=== PATIENT | female | born 1960 | race Caucasian/White ===

== ENCOUNTER 2018-01-31 11:52 | Emergency (ER) | payer MEDICARE ==
[~2018-01-31] VITALS: Ht 185.4 cm; Wt 98.0 kg
[~2018-01-31 11:52] MED LIST: ALBU8.5H8 INH; AZIT250T89 PO; CEFD300C37 PO; FLUT1AER INH; GABA300C10 PO; LISI1TAB3 PO; METH4TAB2 PO
[2018-01-31] MEDS ORDERED: ALBUTEROL/IPRATROPIUM 2.5MG/0.5MG, 3 ML NPPB ONE (12:30)
[2018-01-31] MEDS ORDERED: MELO7.5T31 PO (12:34)
[2018-01-31] MEDS ORDERED: LISI-167 PO (12:34)
[2018-01-31] MEDS ORDERED: HYDR12.53 PO (12:34)
[2018-01-31 12:41] LABS: BASOPHILS # (AUTO) 0.04 x10^3/uL (0-0.1); BASOPHILS % (AUTO) 1 % (0-1); EOSINOPHILS # (AUTO) 0.11 x10^3/uL (0-0.4); EOSINOPHILS % (AUTO) 2 % (1-7); LYMPHOCYTES % (AUTO) 45 % (22-44); MD NO; MEAN CORPUSCULAR HEMOGLOBIN 29.6 pg (27.0-34.8); MEAN CORPUSCULAR HGB CONC 34.3 g/dL (32.4-35.8); MEAN CORPUSCULAR VOLUME 86.3 fL (80-100); MEAN PLATELET VOLUME 8.7 fL (7.4-10.4); MONOCYTES # (AUTO) 0.44 x10^3/uL (0.2-0.8); MONOCYTES % (AUTO) 7 % (2-9); NEUTROPHILS % (AUTO) 45 % (42-75); PLATELET COUNT 217 x10^3/uL (130-400); RED BLOOD COUNT 4.79 x10^6/uL (3.82-5.3); RED CELL DISTRIBUTION WIDTH 13.6 % (9.6-15.2)
[2018-01-31 12:54] LABS: ALBUMIN 3.8 g/dL (3.4-5.0); ANION GAP 6 mmol/L (5-15); CALCIUM 9.1 mg/dL (8.5-10.1); CHLORIDE 107 mmol/L (98-107); CREATININE 0.82 mg/dL (0.55-1.02)
[2018-01-31] MEDS ORDERED: ALBUTEROL/IPRATROPIUM 2.5MG/0.5MG, 3 ML ONE (13:09)
[2018-01-31 14:01] VITALS: BP 146/74
== END 2018-01-31 14:02 | disposition home or self-care (01) ==
LOC: ED 13:25
DX: J45.909 Unspecified asthma, uncomplicated (principal); I10 Essential (primary) hypertension; F17.200 Nicotine dependence, unspecified, uncomplicated
CPT/HCPCS: 36415; 71046; 80048; 82040; 85025; 93005; 94640; 99285; J7620

== ENCOUNTER 2018-08-24 23:46 | Emergency (ER) | payer MEDICARE ==
[~2018-08-24] VITALS: Ht 185.4 cm; Wt 88.3 kg
[~2018-08-24 23:46] MED LIST changes: +HYDR12.517 PO; +LISI-167 PO; +MELO7.5T31 PO
--- NOTE | 2018-08-24 23:57 | NUR ---
WAS SEEN AT [facility] LAST NIGHT. LEFT BREAST PAIN AFTER LEANING ON COUNTER YESTERDAY. NIPPLE INVERTED YESTERDAY. HAD CXR AND BLOODWORK AND WAS TOLD "ALL GOOD". PT STATES [facility] TOLD HER THEY WERE UNABLE TO A SONOGRAM OF HER BREAST.
--- NOTE | 2018-08-25 01:00 | NUR ---
ERP at bedside for re-evaluation.
--- NOTE | 2018-08-25 01:09 | NUR ---
patient discharged with instruction. verbalized understanding.
[2018-08-25 01:10] VITALS: BP 113/78
== END 2018-08-25 01:12 | disposition home or self-care (01) ==
LOC: ED 08-25 00:34
DX: N64.4 Mastodynia (principal); R05 Cough; R09.81 Nasal congestion; I10 Essential (primary) hypertension
CPT/HCPCS: 76642; 99284

== ENCOUNTER 2018-09-25 08:40 | Outpatient (CLI) | payer MEDICARE ==
[2018-09-25] MEDS ORDERED: SODIUM BICARBONATE 4.2%, 5ML ONE (09:00)
[2018-09-25] MEDS ORDERED: LIDOCAINE 1%-EPI 1:100K, 20ML ONE (09:00)
[2018-09-25] MEDS ORDERED: LIDOCAINE 1%, 20ML ONE (09:00)
== END 2018-09-25 23:59 | disposition home or self-care (01) ==
LOC: CFH 08:40
PROVIDERS: ATTEND Surgery
DX: N61.0 Mastitis without abscess (principal)
CPT/HCPCS: 19083; 77065; 88305; 88312; J3490; 19285

== ENCOUNTER 2018-10-06 08:06 | Day surgery (SDC) | payer MEDICARE ==
[~2018-10-06] VITALS: Ht 185.4 cm; Wt 89.9 kg
[~2018-10-06 08:06] MED LIST changes: +BUPIVACAINE/PF 0.5% ONE; +EPINEPHRINE 1 MG/ML, 1ML ONE
[2018-10-06] MEDS ORDERED: LACTATED RINGERS 1,000 ML IV SCH (09:19)
[2018-10-06 09:21] VITALS: BP 129/85
[2018-10-06 09:23] VITALS: BP 129/85
[2018-10-06] MEDS ORDERED: CYCL-259 PO (09:48)
[2018-10-06] MEDS ORDERED: HYDR-3237 PO (09:49)
[2018-10-06 10:07] LABS: ALANINE AMINOTRANSFERASE 17 U/L (12-78); ALBUMIN 3.6 g/dL (3.4-5.0); ANION GAP 7 mmol/L (5-15); CHLORIDE 106 mmol/L (98-107); CREATININE 0.73 mg/dL (0.55-1.02)
[2018-10-06 10:09] LABS: ALKALINE PHOSPHATASE 104 U/L (45-117); BILIRUBIN,TOTAL 0.4 mg/dL (0.2-1.0); TOTAL PROTEIN 6.6 g/dL (6.4-8.2)
[2018-10-06] MEDS ORDERED: MIDAZOLAM 1 MG/ML, 2ML ONE (10:21)
[2018-10-06] MEDS ORDERED: FENTANYL PF 100 MCG/2ML ONE ×2 (10:21→11:06)
[2018-10-06] MEDS ORDERED: LABETALOL 5MG/ML, 20ML IV PRN (11:00)
[2018-10-06] MEDS ORDERED: ACETAMINOPHEN 325 MG TABLET PO PRN (11:00)
[2018-10-06] MEDS ORDERED: ALBUTEROL SULFATE 2.5 MG/3 ML NPPB PRN (11:00)
[2018-10-06] MEDS ORDERED: PROMETHAZINE 25 MG/ML, 1ML IV PRN (11:00)
[2018-10-06] MEDS ORDERED: MEPERIDINE/PF 25MG/0.5ML IVPush PRN (11:00)
[2018-10-06] MEDS ORDERED: DIAZEPAM 5 MG/ML, 2ML IVPush PRN (11:00)
[2018-10-06] MEDS ORDERED: OXYcodone 5 MG/5 ML ORAL.SOL UDC PO PRN (11:00)
[2018-10-06] MEDS ORDERED: hydrALAzine 20 MG/ML, 1ML IV PRN (11:00)
[2018-10-06] MEDS ORDERED: KETOROLAC 30 MG/1 ML IV PRN (11:00)
[2018-10-06] MEDS ORDERED: DEXAMETHASONE 4 MG/ML, 1ML ONE (11:04)
[2018-10-06] MEDS ORDERED: ONDANSETRON 2MG/ML, 2ML ONE (11:04)
[2018-10-06] MEDS ORDERED: PROPOFOL 10 MG/ML, 20ML ONE (11:04)
[2018-10-06] MEDS ORDERED: CEFAZOLIN 1,000 MG ONE (11:04)
[2018-10-06] MEDS: FENTANYL PF 100 MCG/2ML IV PRN ×2 (11:10→11:30)
[2018-10-06] MEDS ORDERED: HYDROmorphone 2 MG/ML, 1ML ONE (11:18)
[2018-10-06] MEDS ORDERED: OXYcodone 5 MG/5 ML ORAL.SOL UDC ONE (11:18)
[2018-10-06] MEDS: HYDROmorphone 2 MG/ML, 1ML IVPush PRN ×2 (11:29→11:40)
== END 2018-10-06 13:10 | disposition home or self-care (01) ==
LOC: OUT 08:06
PROVIDERS: ATTEND Surgery
DX: N60.12 Diffuse cystic mastopathy of left breast (principal); F41.9 Anxiety disorder, unspecified; F17.210 Nicotine dependence, cigarettes, uncomplicated; Z98.51 Tubal ligation status; Z96.652 Presence of left artificial knee joint; Z98.890 Other specified postprocedural states; Z88.6 Allergy status to analgesic agent; Z88.5 Allergy status to narcotic agent; Z88.0 Allergy status to penicillin; Z88.8 Allergy status to other drugs, medicaments and biological substances
CPT/HCPCS: 19301; 36415; 76098; 80053; 88305; J0171; J0690; J1100; J1170; J2250; J2405; J2704; J3010